=== PATIENT | female | born 1990 | race African-American/Black ===

== ENCOUNTER 2024-01-29 09:42 | Emergency (ER) | payer MEDICAID, OTHER ==
[~2024-01-29] VITALS: Ht 157.5 cm; Wt 67.0 kg
[2024-01-29] MEDS ORDERED: BACDST PO (11:01)
[2024-01-29] MEDS ORDERED: CEPH500C PO (11:01)
[2024-01-29] MEDS ORDERED: IBUP-1454 PO (11:01)
[2024-01-29 11:12] VITALS: BP 118/84; PULSE 96; RESP 16; TEMP 98.6; O2SAT 99
== END 2024-01-29 11:15 | disposition home or self-care (01) ==
LOC: ER 09:42
DX: S30.860A Insect bite (nonvenomous) of lower back and pelvis, initial encounter (principal); W57.XXXA Bitten or stung by nonvenomous insect and other nonvenomous arthropods, initial encounter; Y93.89 Activity, other specified; Y92.89 Other specified places as the place of occurrence of the external cause; Y99.8 Other external cause status